=== PATIENT | male | born 1945 | race Caucasian/White ===

== ENCOUNTER 2023-12-31 17:28 | Emergency (ER) | payer SELFPAY ==
[~2023-12-31] VITALS: Ht 182.9 cm; Wt 108.4 kg
[2023-12-31 20:03] VITALS: PULSE 107; RESP 16; O2SAT 95
== END 2023-12-31 20:06 | disposition home or self-care (01) ==
LOC: ER 17:28
DX: S01.01XA Laceration without foreign body of scalp, initial encounter (principal); I10 Essential (primary) hypertension; W18.39XA Other fall on same level, initial encounter; Y93.89 Activity, other specified; Y92.89 Other specified places as the place of occurrence of the external cause; Y99.8 Other external cause status
CPT/HCPCS: 12001